=== PATIENT | female | born 1965 | race Caucasian/White ===

== ENCOUNTER 2017-01-29 02:16 | Emergency (ER) | payer SELFPAY ==
[~2017-01-29] VITALS: Ht 162.6 cm; Wt 62.9 kg
[2017-01-29 02:24] VITALS: BP 120/75; PULSE 80; RESP 14; TEMP 97.6; O2SAT 98
[2017-01-29] MEDS ORDERED: SUBO8MIS SL (02:32)
[2017-01-29] MEDS ORDERED: AMBI10TA PO (02:32)
[2017-01-29] MEDS ORDERED: PROZ20CA11 PO (02:32)
[2017-01-29] MEDS ORDERED: LORazepam 2 MG/ML VIAL IV PUSH ONE (02:45)
[2017-01-29] MEDS ORDERED: SODIUM CHLOR 0.9% 1000 ML INJ 1,000 ML IV ONE (02:45)
--- NOTE | 2017-01-29 02:45 | PD ---
HPI Chief Complaint: Dizziness Time Seen by Provider: 02:36 Travel History International Travel<30 days: No Contact w/Intl Traveler<30days: No Traveled to known affect area: No History of Present Illness HPI This is a 52-year-old female who presents to the emergency department with dizziness, lightheadedness and not feeling herself for the past several days. She's also been struggling with anxiety. She says that tonight she had an episode where she felt short of breath, felt like her heart was racing and she was sweating profusely. She felt very anxious and she told her bring her to the emergency department. Her symptoms were constant, lasting for about 15-20 minutes and currently has subsided. She takes Prozac for anxiety. She feels like her anxiety has gotten a lot worse over the past several weeks and she wasn't sure if it's because she is going through menopause. PFSH Past Medical History Narrative Medical Anxiety Fibroids status post partial hysterectomy Social History Alcohol Use: Yes (socially) Tobacco Use: No Substance Use: No Allergies-Medications (Allergen,Severity, Reaction): Coded Allergies: No Known Allergies (Unverified , 01/29/17) Reported Meds & Prescriptions Reported Meds & Active Scripts Active Reported Estroven Multi-Symptom Me (Black Cohosh-Soy Isoflavones-M) 1 Cap 1 Cap PO DAILY Suboxone Sublingual Film (Buprenorphine-Naloxone Sublingual Film) 8-2 Mg Film 1 Film SL DAILY Unique ID number required: Ambien (Zolpidem Tartrate) 10 Mg Tab 10 Mg PO HS PRN Prozac (Fluoxetine HCl) 20 Mg Cap 20 Mg PO DAILY Review of Systems Except as stated in HPI: all other systems reviewed are Neg Physical Exam Narrative GENERAL:Well appearing, no acute distress SKIN: Focused skin assessment warm and dry. HEAD: Atraumatic. Normocephalic. EYES: Pupils equal and round. No injection or drainage. ENT: Moist mucous membranes NECK: Trachea midline. CARDIOVASCULAR: Regular rate and rhythm. No murmur appreciated. RESPIRATORY: Clear to auscultation. Breath sounds equal bilaterally. GASTROINTESTINAL: Abdomen soft, non-tender, nondistended. MUSCULOSKELETAL: No obvious deformities. NEUROLOGICAL: Awake and alert. No obvious cranial nerve deficits. Moving all extremities. PSYCHIATRIC: Appropriate mood and affect; insight and judgment normal. Data Data Last Documented VS Vital Signs Date Time Temp Pulse Resp B/P Pulse Ox O2 Delivery O2 Flow Rate FiO2 01/29/17 02:24 97.6 80 14 120/75 98 Room Air Orders Complete Blood Count With Diff (01/29/17 02:42) Comprehensive Metabolic Panel (01/29/17 02:42) Thyroid Stimulating Hormone (01/29/17 02:42) Troponin I (01/29/17 02:42) Electrocardiogram (01/29/17 ) Urinalysis - C+S If Indicated (01/29/17 02:42) Lorazepam Inj (Ativan Inj) (01/29/17 02:45) Sodium Chlor 0.9% 1000 Ml Inj (Ns 1000 M (01/29/17 02:45) ^ Insert Iv (01/29/17 02:42) Urine Culture (01/29/17 02:52) Potassium Chloride Eff (K-Lyte Cl Eff) (01/29/17 03:45) Labs Laboratory Tests Test 01/29/17 01/29/17 02:52 03:00 Urine Color YELLOW Urine Turbidity CLOUDY Urine pH 5.5 Urine Specific [place] 1.015 Urine Protein NEG mg/dL Urine Glucose (UA) NEG mg/dL Urine Ketones NEG mg/dL Urine Occult Blood NEG Urine Nitrite NEG Urine Bilirubin NEG Urine Leukocyte Esterase MOD Urine RBC 0-3 /hpf Urine WBC 9-14 /hpf Urine Squamous Epithelial > 8 /hpf Cells Urine Amorphous Sediment MOD Urine Bacteria FEW /hpf Microscopic Urinalysis Comment CULTURE INDICATED White Blood Count 6.2 TH/MM3 Red Blood Count 4.17 MIL/MM3 Hemoglobin 12.3 GM/DL Hematocrit 36.7 % Mean Corpuscular Volume 88.1 FL Mean Corpuscular Hemoglobin 29.5 PG Mean Corpuscular Hemoglobin 33.5 % Concent Red Cell Distribution Width 12.9 % Platelet Count 323 TH/MM3 Mean Platelet Volume 6.4 FL Neutrophils (%) (Auto) 51.6 % Lymphocytes (%) (Auto) 34.5 % Monocytes (%) (Auto) 9.6 % Eosinophils (%) (Auto) 3.4 % Basophils (%) (Auto) 0.9 % Neutrophils # (Auto) 3.2 TH/MM3 Lymphocytes # (Auto) 2.1 TH/MM3 Monocytes # (Auto) 0.6 TH/MM3 Eosinophils # (Auto) 0.2 TH/MM3 Basophils # (Auto) 0.1 TH/MM3 CBC Comment DIFF FINAL Differential Comment Sodium Level 142 MEQ/L Potassium Level 3.0 MEQ/L Chloride Level 106 MEQ/L Carbon Dioxide Level 27.3 MEQ/L Anion Gap 9 MEQ/L Blood Urea Nitrogen 14 MG/DL Creatinine 1.30 MG/DL Estimat Glomerular Filtration 43 ML/MIN Rate Random Glucose 56 MG/DL Calcium Level 9.0 MG/DL Total Bilirubin 0.3 MG/DL Aspartate Amino Transf 14 U/L (AST/SGOT) Alanine Aminotransferase 17 U/L (ALT/SGPT) Alkaline Phosphatase 87 U/L Troponin I LESS THAN 0.02 NG/ML Total Protein 8.2 GM/DL Albumin 3.7 GM/DL Thyroid Stimulating Hormone 6.270 uIU/ML 3rd Gen [facility] Medical Decision Making Medical Screen Exam Complete: Yes Emergency Medical Condition: Yes Interpretation(s) Afebrile, no tachycardia No leukocytosis Mild renal insufficiency Potassium is 3 TSH is 6.2 Urinalysis is contaminated with squamous epithelial cells Differential Diagnosis Acute coronary syndrome, arrhythmia, hyperthyroidism, acute coronary syndrome, electrolyte abnormality, infection Narrative Course This is a 52-year-old female who presents to the emergency department with an episode of palpitations and anxiety. Labs are obtained and she is placed on a monitor. EKG was nonischemic and demonstrates no signs of arrhythmia. Patient is not anemic. She does have hypokalemia and some renal insufficiency. Her TSH is slightly elevated. Urinalysis is contaminated in the absence of leukocytosis or symptoms of dysuria, frequency or urgency I doubt she has a urinary tract infection. I did advise her to follow-up with the [facility] regarding her TSH level as I suspect her symptoms may be endocrine related. She was happy with this advice. She'll be discharged home. Diagnosis Primary Impression: Palpitations Patient Instructions: General Instructions Additional Instructions: If you develop severe chest pain, shortness of breath, sweating, lightheadedness , dizziness or difficulty breathing return to the emergency department immediately. Your thyroid level, TSH is abnormal. This should be followed by a primary care physician. Med/Other Pt SpecificInfo: No Change to Meds Disposition: 01 DISCHARGE HOME Condition: Stable Vianney Benavides MD Jan 29, 2017 02:45
[2017-01-29 03:14] LABS: BLOOD, URINE NEG (NEG); GLUCOSE,URINE NEG (NEG); KETONE, URINE NEG (NEG); NITRITE,URINE NEG (NEG); PH, URINE 5.5 (5.0-8.5)
[2017-01-29 03:15] LABS: AUTOMATED NEUTROPHIL # 3.2 TH/MM3 (1.8-7.7); BASOPHIL # 0.1 TH/MM3 (0-0.2); BASOPHIL % 0.9 % (0.0-2.0); EOSINOPHIL # 0.2 TH/MM3 (0-0.4); EOSINOPHIL % 3.4 % (0.0-4.0); HEMATOCRIT 36.7 % (35.0-46.0); HEMO FLAGS DIFF FINAL; LYMPH % 34.5 % (9.0-44.0); LYMPHOCYTE # 2.1 TH/MM3 (1.0-4.8); MEAN CELL VOLUME 88.1 FL (80.0-100.0); MEAN CORPUSCULAR HEMOGLOBIN 29.5 PG (27.0-34.0); MEAN CORPUSCULAR HGB CONC 33.5 % (32.0-36.0); MONO % 9.6 % (0.0-8.0); NEUT % 51.6 % (16.0-70.0); PLATELET COUNT 323 TH/MM3 (150-450); RED BLOOD COUNT 4.17 MIL/MM3 (4.00-5.30); RED CELL DISTRIBUTION WIDTH 12.9 % (11.6-17.2); WHITE BLOOD COUNT 6.2 TH/MM3 (4.0-11.0)
[2017-01-29 03:19] LABS: URINE COLOR YELLOW (YELLW/STRAW)
[2017-01-29 03:20] LABS: BACTERIA, URINE FEW /hpf; COMMENT (UR) CULTURE INDICATED; CULTURE IF INDICATED CULTURE INDICATED; RBC, URINE 0-3 /hpf (0-3); SQUAMOUS EPITHELIAL CELL URINE > 8 /hpf (0-5)
[2017-01-29 03:21] LABS: CHLORIDE 106 MEQ/L (98-107); SODIUM (NA) 142 MEQ/L (136-145)
[2017-01-29] MEDS ORDERED: BLAC1CAP2 PO (03:21)
[2017-01-29 03:25] LABS: ANION GAP 9 MEQ/L (5-15); BICARBONATE 27.3 MEQ/L (21.0-32.0)
[2017-01-29 03:26] LABS: BLOOD UREA NITROGEN 14 MG/DL (7-18)
[2017-01-29 03:28] LABS: ALT (GPT) 17 U/L (10-53)
[2017-01-29 03:29] LABS: AST (GOT) 14 U/L (15-37); GLOMERULAR FILTRATION RATE 43 ML/MIN (>89)
[2017-01-29 03:30] LABS: TOTAL BILIRUBIN ADULT 0.3 MG/DL (0.2-1.0)
[2017-01-29 03:31] LABS: ALKALINE PHOSPHATASE 87 U/L (45-117)
[2017-01-29] MEDS ORDERED: POTASSIUM CHLORIDE 25 MEQ EFFERVESCENT TAB PO ONE (03:45)
[2017-01-29 04:37] VITALS: BP 105/77; PULSE 73; RESP 16; O2SAT 100
--- NOTE | 2017-01-30 19:25 | EKG ---
Date Performed: 01/29/2017 Time Performed: 03:32:02 PTAGE: 52 years EKG: Sinus rhythm NORMAL ECG NO PREVIOUS TRACING DOCTOR: Poonam Cardona Interpretating Date/Time 01/30/2017 19:23:17
== END 2017-01-29 04:40 | disposition home or self-care (01) ==
LOC: PHED 02:16
DX: R00.2 Palpitations (principal); R79.89 Other specified abnormal findings of blood chemistry; E87.6 Hypokalemia; N28.9 Disorder of kidney and ureter, unspecified; F41.9 Anxiety disorder, unspecified; Z86.59 Personal history of other mental and behavioral disorders; Z87.42 Personal history of other diseases of the female genital tract
CPT/HCPCS: 80053; 81001; 84443; 84484; 85025; 87086; 93005; 96361; 96374; 99284; J2060; J7030

== ENCOUNTER 2017-02-19 09:49 | Emergency (ER) | payer SELFPAY ==
[~2017-02-19] VITALS: Ht 162.6 cm; Wt 64.5 kg
[~2017-02-19 09:49] MED LIST: AMBI10TA PO; BLAC1CAP2 PO; PROZ20CA11 PO; SUBO8MIS SL
[2017-02-19 09:55] VITALS: BP 157/80; PULSE 109; RESP 16; TEMP 98.5; O2SAT 100
[2017-02-19] MEDS ORDERED: AMPH1TAB29 PO (10:59)
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
== END 2017-02-19 11:33 | disposition home or self-care (01) ==
LOC: PHED 09:49
DX: R61 Generalized hyperhidrosis (principal); F41.9 Anxiety disorder, unspecified
CPT/HCPCS: 99283

== ENCOUNTER 2017-07-30 04:06 | Inpatient (IN) | payer SELFPAY ==
[~2017-07-30] VITALS: Ht 162.6 cm; Wt 75.1 kg
[2017-07-30] VITALS (9 sets, daily range): BP systolic 105–149; BP diastolic 59–75; PULSE 76–115; RESP 16–20; TEMP 97.8–99.2; O2SAT 94–99
[~2017-07-30 04:06] MED LIST changes: +AMPH1TAB29 PO
[2017-07-30] MEDS ORDERED: SODIUM CHLORIDE 0.9% FLUSH 10 ML FLUSH IVF PRN (04:45)
[2017-07-30] MEDS ORDERED: RESP: ALBUTEROL 2.5 MG/IPRATROPIUM 0.5 MG NEB (SCH) NEB ONE ×2 (04:45→07:00)
[2017-07-30] MEDS ORDERED: AZITHROMYCIN INJ 500 MG in SODIUM CHLOR 0.9% 250 ML INJ 250 ML IV ONE (04:45)
[2017-07-30] MEDS ORDERED: PIPERACIL-TAZO 4.5 GM PREMIX 100 ML IV ONE (04:45)
[2017-07-30 05:41] LABS: AUTOMATED NEUTROPHIL # 2.9 TH/MM3 (1.8-7.7); BASOPHIL % 0.3 % (0.0-2.0); EOSINOPHIL % 0.7 % (0.0-4.0); HEMATOCRIT 35.6 % (35.0-46.0); HEMOGLOBIN 12.1 GM/DL (11.6-15.3); MEAN CELL VOLUME 93.5 FL (80.0-100.0); MEAN CORPUSCULAR HEMOGLOBIN 31.9 PG (27.0-34.0); MEAN CORPUSCULAR HGB CONC 34.1 % (32.0-36.0); MEAN PLATELET VOLUME 7.6 FL (7.0-11.0); MONO % 14.1 % (0.0-8.0); MONOCYTE # 0.8 TH/MM3 (0-0.9); NEUT % 49.9 % (16.0-70.0); PLATELET COUNT 171 TH/MM3 (150-450); RED BLOOD COUNT 3.81 MIL/MM3 (4.00-5.30); RED CELL DISTRIBUTION WIDTH 12.8 % (11.6-17.2); WHITE BLOOD COUNT 5.8 TH/MM3 (4.0-11.0)
--- NOTE | 2017-07-30 05:48 | RADRPT ---
EXAM DATE/TIME: 07/30/2017 04:55 [facility] COMPARISON: No previous studies available for comparison. INDICATIONS : Shortness of breath MEDICAL HISTORY : SURGICAL HISTORY : Hysterectomy. ENCOUNTER: Initial ACUITY: 1 day PAIN SCORE: 8/10 LOCATION: Bilateral chest FINDINGS: A single view of the chest demonstrates a focal mild infiltrate in the left lower lung. Otherwise, th e rest of the lungs are grossly clear.. The cardiomediastinal contours are unremarkable. Osseous st ructures are intact. CONCLUSION: Mild left lower lung infiltrate. Elver Maldonado MD on July 30, 2017 at 5:45 Board Certified Radiologist. This report was verified electronically.
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
[2017-07-30] MEDS ORDERED: KETOROLAC TROMETHAMINE 30 MG/ML (IVP) VIAL IV PUSH ONE ×2 (06:00→21:00)
[2017-07-30 06:04] LABS: ALBUMIN 3.4 GM/DL (3.4-5.0); AST (GOT) 28 U/L (15-37); BICARBONATE 24.7 MEQ/L (21.0-32.0); BLOOD UREA NITROGEN 9 MG/DL (7-18); CALCIUM 8.6 MG/DL (8.5-10.1); CHLORIDE 101 MEQ/L (98-107); CREATININE 1.07 MG/DL (0.50-1.00); GLOMERULAR FILTRATION RATE 54 ML/MIN (>89); GLUCOSE,RANDOM 112 MG/DL (74-106); SODIUM (NA) 136 MEQ/L (136-145)
[2017-07-30 06:05] LABS: ALT (GPT) 24 U/L (10-53)
[2017-07-30 06:08] LABS: ALKALINE PHOSPHATASE 68 U/L (45-117); TOTAL BILIRUBIN ADULT 0.3 MG/DL (0.2-1.0); TOTAL PROTEIN 7.6 GM/DL (6.4-8.2)
[2017-07-30] MEDS ORDERED: SENNOSIDES 8.6 MG TAB PO PRN (06:45)
[2017-07-30] MEDS ORDERED: SODIUM CHLOR 0.9% 1000 ML INJ 1,000 ML IV ONE (06:45)
[2017-07-30] MEDS ORDERED: ONDANSETRON HCL 4 MG/2 ML VIAL IVP PRN (06:45)
[2017-07-30] MEDS ORDERED: Vancomycin Consult Pharmacy 1 EA OTHER SCH (06:45)
[2017-07-30] MEDS ORDERED: BISACODYL 10 MG SUPP RECTAL PRN (06:45)
[2017-07-30] MEDS ORDERED: LACTULOSE SYRUP 20 GM/30 ML CUP PO PRN (06:45)
[2017-07-30] MEDS ORDERED: ACETAMINOPHEN/HYDROcodone 325 MG/5 MG TAB PO PRN (06:45)
[2017-07-30] MEDS ORDERED: SODIUM CHLORIDE 0.9% FLUSH 10 ML FLUSH IV FLUSH PRN (06:45)
[2017-07-30] MEDS ORDERED: MAGNESIUM HYDROXIDE SUSP 30 ML CUP PO PRN (06:45)
[2017-07-30] MEDS ORDERED: ACETAMINOPHEN 325 MG TAB PO PRN (06:45)
[2017-07-30] MEDS ORDERED: RESP: ALBUTEROL 2.5 MG/IPRATROPIUM 0.5 MG NEB (PRN) NEB (06:45)
[2017-07-30] MEDS ORDERED: VANCOMYCIN 1,000 MG/NS 250 ML IV ONE ×2 (08:00)
[2017-07-30] MEDS: CEFEPIME INJ 1,000 MG in SODIUM CHLORIDE 0.9% INJ 100 ML IV SCH ×2 (08:02→20:19)
[2017-07-30] MEDS: SODIUM CHLOR 0.9% 1000 ML INJ 1,000 ML IV SCH ×2 (08:57→17:13)
[2017-07-30] MEDS: VANCOMYCIN INJ 1,250 MG in SODIUM CHLOR 0.9% 250 ML INJ 250 ML IV SCH ×2 (08:58→20:18)
[2017-07-30] MEDS: DOCUSATE SODIUM 50 MG/SENNA 8.6 MG TAB PO SCH ×2 (08:58→20:19)
[2017-07-30] MEDS: SODIUM CHLORIDE 0.9% FLUSH 10 ML FLUSH IV FLUSH SCH ×2 (08:58→20:18)
--- NOTE | 2017-07-30 09:08 | HHI.HP ---
[facility] Service [place] [facility] Primary Care Physician No Primary Care Physician Admission Diagnosis pneumonia Diagnoses: Travel History International Travel<30 Days: No Contact w/Intl Traveler <30 Da: No Traveled to Known Affected Are: No History of Present Illness 52-year-old female with a past medical history significant for chronic back pain for which she takes methadone presents to the emergency department with a four-day history of headache, sore throat, fever and cough productive of yellow sputum. The patient has associated shortness of breath and nausea/vomiting. Denies chest pain. Vital signs on arrival, temperature 99.2, pulse 1:15, respiratory rate 18, BP 149/75, pulse ox 94% on room air. Chest x-ray significant for mid left lower lung infiltrate. Patient has no prior history of blood clots and no lower extremity swelling. Review of Systems Positive fever/chills Denies blurry vision, otorrhea, rhinorrhea Positive sore throat and productive cough No chest pain, palpitations, positive shortness of breath No abdominal pain Denies constipation/diarrhea. Positive nausea/vomiting Denies muscle pain/weakness No rashes Past Family Social History Past Medical History Chronic back pain for which she takes 90 mg of methadone every other day Past Surgical History Partial hysterectomy Reported Medications Methadone 90 mg every other day Allergies: Coded Allergies: No Known Allergies (Unverified Allergy, Unknown, 07/30/17) Family History Mother with diabetes mellitus Social History Denies alcohol, tobacco and illicit drugs. Physical Exam Vital Signs Vital Signs Date Time Temp Pulse Resp B/P (MAP) Pulse Ox O2 Delivery O2 Flow Rate FiO2 07/30/17 08:30 101 113/63 (80) 95 07/30/17 07:46 95 21 07/30/17 07:03 97 20 113/63 (80) 95 Nasal Cannula 2.00 07/30/17 04:54 99 Nasal Cannula 2.00 07/30/17 04:13 94 Room Air 07/30/17 04:10 99.2 115 18 149/75 (99) 94 Physical Exam GENERAL: female lying in bed SKIN: No rashes, ecchymoses or lesions. Cool and dry. HEAD: Atraumatic. Normocephalic. No temporal or scalp tenderness. EYES: Pupils equal round and reactive. Extraocular motions intact. No scleral icterus. No injection or drainage. ENT: Nose without bleeding, purulent drainage or septal hematoma. Throat without erythema, tonsillar hypertrophy or exudate. Uvula midline. Airway patent. NECK: Trachea midline. No JVD or lymphadenopathy. Supple, nontender, no meningeal signs. CARDIOVASCULAR: Regular rate and rhythm without murmurs, gallops, or rubs. RESPIRATORY: Bilateral wheezes and rhonchi. GASTROINTESTINAL: Abdomen soft, non-tender, nondistended. No hepato-splenomegaly , or palpable masses. No guarding. MUSCULOSKELETAL: Extremities without clubbing, cyanosis, or edema. No joint tenderness, effusion, or edema noted. No calf tenderness. NEUROLOGICAL: Awake and alert. Cranial nerves II through XII intact. Motor and sensory grossly within normal limits. Normal speech. Laboratory Laboratory Tests Test 07/30/17 05:10 07/30/17 05:25 07/30/17 06:40 White Blood Count 5.8 Red Blood Count 3.81 Hemoglobin 12.1 Hematocrit 35.6 Mean Corpuscular Volume 93.5 Mean Corpuscular Hemoglobin 31.9 Mean Corpuscular Hemoglobin Concent 34.1 Red Cell Distribution Width 12.8 Platelet Count 171 Mean Platelet Volume 7.6 Neutrophils (%) (Auto) 49.9 Lymphocytes (%) (Auto) 35.0 Monocytes (%) (Auto) 14.1 Eosinophils (%) (Auto) 0.7 Basophils (%) (Auto) 0.3 Neutrophils # (Auto) 2.9 Lymphocytes # (Auto) 2.0 Monocytes # (Auto) 0.8 Eosinophils # (Auto) 0.0 Basophils # (Auto) 0.0 CBC Comment DIFF FINAL Differential Comment Blood Urea Nitrogen 9 Creatinine 1.07 Random Glucose 112 Total Protein 7.6 Albumin 3.4 Calcium Level 8.6 Alkaline Phosphatase 68 Aspartate Amino Transf (AST/SGOT) 28 Alanine Aminotransferase (ALT/SGPT) 24 Total Bilirubin 0.3 Sodium Level 136 Potassium Level 3.3 Chloride Level 101 Carbon Dioxide Level 24.7 Anion Gap 10 Estimat Glomerular Filtration Rate 54 B-Type Natriuretic Peptide 18 Lactic Acid Level 1.4 Troponin I LESS THAN 0.02 Date/Time Source Procedure Growth Status 07/30/17 05:00 Blood Peripheral Aerobic Blood Culture Pending Received 07/30/17 05:00 Blood Peripheral Anaerobic Blood Culture Pending Received 07/30/17 05:46 Sputum Expectorated Sputum Gram Stain Pending Received 07/30/17 05:46 Sputum Expectorated Sputum Sputum Culture Pending Received Result Diagram: 07/30/17 0510 07/30/17 0510 Caprini VTE Risk Assessment Caprini VTE Risk Assessment: No/Low Risk (score <= 1) Caprini Risk Assessment Model Point Value = 1 Point Value = 2 Point Value = 3 Point Value = 5 Age 41-60 Minor surgery BMI > 25 kg/m2 Swollen legs Varicose veins or History of unexplained or recurrent spontaneous Oral contraceptives or hormone replacement Sepsis (< 1 month) Serious lung disease, including pneumonia (< 1 month) Abnormal pulmonary function Acute myocardial infarction Congestive heart failure (< 1 month) History of inflammatory bowel disease Medical patient at bed rest Age 61-74 Arthroscopic surgery Major open surgery (> 45 min) Laparoscopic surgery (> 45 min) Malignancy Confined to bed (> 72 hours) Immobilizing plaster cast Central venous access Age >= 75 History of VTE Family history of VTE Factor V Leiden Prothrombin [id number] Lupus anticoagulant Anticardiolipin antibodies Elevated serum homocysteine Heparin-induced thrombocytopenia Other congenital or acquired thrombophilia Stroke (< 1 month) Elective arthroplasty Hip, pelvis, or leg fracture Acute spinal cord injury (< 1 month) Prophylaxis Regimen Total Risk Factor Score Risk Level Prophylaxis Regimen 0-1 Low Early ambulation 2 Moderate Order ONE of the following: *Sequential Compression Device (SCD) *Heparin 5000 units SQ BID 3-4 Higher Order ONE of the following medications: *Heparin 5000 units SQ TID *Enoxaparin/Lovenox 40 mg SQ daily (WT < 150 kg, CrCl > 30 mL/min) *Enoxaparin/Lovenox 30 mg SQ daily (WT < 150 kg, CrCl > 10-29 mL/min) *Enoxaparin/Lovenox 30 mg SQ BID (WT < 150 kg, CrCl > 30 mL/min) AND/OR *Sequential Compression Device (SCD) 5 or more Highest Order ONE of the following medications: *Heparin 5000 units SQ TID (Preferred with Epidurals) *Enoxaparin/Lovenox 40 mg SQ daily (WT < 150 kg, CrCl > 30 mL/min) *Enoxaparin/Lovenox 30 mg SQ daily (WT < 150 kg, CrCl > 10-29 mL/min) *Enoxaparin/Lovenox 30 mg SQ BID (WT < 150 kg, CrCl > 30 mL/min) AND *Sequential Compression Device (SCD) Assessment and Plan Assessment and Plan Assessment/plan: 1. Pneumonia Chest x-ray significant for left lower lung infiltrate, images reviewed by me No leukocytosis, lactic acid 1.4 Negative for flu Blood cultures, sputum culture pending Cefepime and vancomycin pending culture results DuoNebs Supplemental oxygen as needed Monitor for signs of sepsis and respiratory distress Anticipate antibiotic de-escalation with clinical improvement and the return of cultures 2. Chronic back pain on methadone Call methadone clinic to confirm dosing Restart home methadone once confirmed FEN Regular diet NS at 100 cc/hr Electrolytes: Status post by mouth supplementation of potassium, monitor BMP SCDs Physician Certification 2 Midnight Certification Type: Admission for Inpatient Services Order for Inpatient Services The services are ordered in accordance with Medicare regulations or non- Medicare payer requirements, as applicable. In the case of services not specified as inpatient-only, they are appropriately provided as inpatient services in accordance with the 2-midnight benchmark. Estimated LOS (days): 2 2 days is the estimated time the patient will need to remain in the hospital, assuming treatment plan goals are met and no additional complications. Post-Hospital Plan: Not yet determined Andie Mustafa MD Jul 30, 2017 09:08
[2017-07-30] MEDS ORDERED: POTASSIUM CHLORIDE 20 MEQ CONTROLLED RELEASE TAB PO ONE (09:15)
[2017-07-30] MEDS ORDERED: METH10CO3 PO (09:31)
[2017-07-30 10:13] LABS: AMORPHOUS SEDIMENT, URINE FEW; BACTERIA, URINE RARE /hpf; BILIRUBIN, URINE NEG (NEG); BLOOD, URINE NEG (NEG); GLUCOSE,URINE TRACE mg/dL (NEG); KETONE, URINE NEG (NEG); NITRITE,URINE NEG (NEG); SQUAMOUS EPITHELIAL CELL URINE 15 /hpf (0-5); TRANSITIONAL EPI CELLS, URINE <1 /hpf; URINE COLOR LIGHT-YELLOW (YELLW/STRAW); URINE LEUKOCYTE ESTERASE NEG (NEG)
[2017-07-30] MEDS: METHADONE HCL 10 MG TAB PO SCH (11:48)
[2017-07-30] MEDS: ACETAMINOPHEN/HYDROcodone 325 MG/10 MG TAB PO PRN ×2 (17:20→23:05)
[2017-07-30] MEDS ORDERED: ACETAMIN 325 MG/BUTALBITAL 50 MG/CAFFEINE 40 MG TAB PO ONE (21:00)
[2017-07-31] VITALS (9 sets, daily range): BP systolic 96–135; BP diastolic 60–82; PULSE 59–86; RESP 12–20; TEMP 97.8–98.2; O2SAT 94–98
[2017-07-31] MEDS: SODIUM CHLOR 0.9% 1000 ML INJ 1,000 ML IV SCH ×3 (03:00→23:30)
[2017-07-31 07:41] LABS: AUTOMATED NEUTROPHIL # 4.4 TH/MM3 (1.8-7.7); BASOPHIL % 0.2 % (0.0-2.0); EOSINOPHIL % 0.2 % (0.0-4.0); HEMATOCRIT 29.8 % (35.0-46.0); HEMOGLOBIN 10.2 GM/DL (11.6-15.3); LYMPH % 18.5 % (9.0-44.0); LYMPHOCYTE # 1.1 TH/MM3 (1.0-4.8); MEAN CELL VOLUME 93.5 FL (80.0-100.0); MEAN CORPUSCULAR HEMOGLOBIN 32.1 PG (27.0-34.0); MEAN CORPUSCULAR HGB CONC 34.3 % (32.0-36.0); MEAN PLATELET VOLUME 7.5 FL (7.0-11.0); MONO % 9.8 % (0.0-8.0); MONOCYTE # 0.6 TH/MM3 (0-0.9); NEUT % 71.3 % (16.0-70.0); PLATELET COUNT 167 TH/MM3 (150-450); RED BLOOD COUNT 3.18 MIL/MM3 (4.00-5.30); RED CELL DISTRIBUTION WIDTH 12.9 % (11.6-17.2); WHITE BLOOD COUNT 6.2 TH/MM3 (4.0-11.0)
[2017-07-31 07:43] LABS: ALBUMIN 2.6 GM/DL (3.4-5.0); ALKALINE PHOSPHATASE 48 U/L (45-117); ALT (GPT) 19 U/L (10-53); AST (GOT) 17 U/L (15-37); BICARBONATE 24.3 MEQ/L (21.0-32.0); BLOOD UREA NITROGEN 13 MG/DL (7-18); CALCIUM 8.2 MG/DL (8.5-10.1); CHLORIDE 112 MEQ/L (98-107); CREATININE 0.85 MG/DL (0.50-1.00); GLOMERULAR FILTRATION RATE 71 ML/MIN (>89); GLUCOSE,RANDOM 85 MG/DL (74-106); SODIUM (NA) 142 MEQ/L (136-145); TOTAL BILIRUBIN ADULT 0.2 MG/DL (0.2-1.0); TOTAL PROTEIN 6.3 GM/DL (6.4-8.2)
--- NOTE | 2017-07-31 08:04 | EKG ---
Date Performed: 07/30/2017 Time Performed: 04:15:34 PTAGE: 52 years EKG: SINUS TACHYCARDIA NONSPECIFIC T-WAVE ABNORMALITY, new since prior tracing ABNORMAL RHYTHM E CG PREVIOUS TRACING : 01/29/2017 03.32 DOCTOR: oJsue Sharif Interpretating Date/Time 07/31/2017 08:03:26
--- NOTE | 2017-07-31 08:05 | EKG ---
Date Performed: 07/30/2017 Time Performed: 06:41:32 PTAGE: 52 years EKG: Sinus rhythm POSSIBLE LEFT ATRIAL ENLARGEMENT Nonspecific ST-T abnormalities Since previous tracing, no significa nt change noted BORDERLINE ECG PREVIOUS TRACING : 07/30/2017 04.15 DOCTOR: Josue Sharif Interpretating Date/Time 07/31/2017 08:04:08
[2017-07-31] MEDS: SODIUM CHLORIDE 0.9% FLUSH 10 ML FLUSH IV FLUSH SCH ×2 (09:00→20:58)
[2017-07-31] MEDS ORDERED: METHADONE PO SCH (09:00)
[2017-07-31] MEDS ORDERED: INFLUENZA VIRUS VACCINE (QUADRIVALENT) 0.5 ML SYR IM ONE (10:00)
[2017-07-31] MEDS ORDERED: PNEUMOCOCCAL POLYVALENT INJ 25 MCG/0.5 ML SYR IM ONE (10:00)
[2017-07-31] MEDS: METHADONE HCL 10 MG TAB PO SCH (10:04)
[2017-07-31] MEDS: DOCUSATE SODIUM 50 MG/SENNA 8.6 MG TAB PO SCH ×2 (10:04→20:58)
[2017-07-31] MEDS: VANCOMYCIN INJ 1,250 MG in SODIUM CHLOR 0.9% 250 ML INJ 250 ML IV SCH ×2 (10:13→20:57)
--- NOTE | 2017-07-31 14:09 | HHI.PR ---
Subjective Remarks This is a pleasant 52 y/o Female with chronic low back pain, takes Methadone who presents to Emergency room with headache, sore throat, fever and cough productive of yellow sputum. The patient has associated shortness of breath and nausea/vomiting. Denies chest pain. has left lower lobe infiltrate to continue antibiotics, bronchodilator, Mucolytic and incentive spirometry. improving condition clinically. Objective Vital Signs Date Time Temp Pulse Resp B/P (MAP) Pulse Ox O2 Delivery O2 Flow Rate FiO2 07/31/17 12:45 97.8 80 14 104/73 (83) 95 07/31/17 10:01 97.8 86 12 124/82 (96) 96 07/31/17 06:53 16 07/31/17 04:02 65 07/31/17 00:11 59 07/31/17 00:06 16 07/30/17 23:04 16 07/30/17 23:04 16 07/30/17 20:00 97.8 78 16 105/71 (82) 96 07/30/17 20:00 76 07/30/17 15:00 98.7 84 122/72 (89) 07/30/17 15:00 84 I/O 07/30/17 07/30/17 07/30/17 07/31/17 07/31/17 07/31/17 07:00 15:00 23:00 07:00 15:00 23:00 Intake Total 350 ml 1440 ml 1340 ml 480 ml 480 ml Balance 350 ml 1440 ml 1340 ml 480 ml 480 ml Intake Oral 440 ml 440 ml 480 ml 480 ml IV Total 350 ml 1000 ml 900 ml # Voids 1 1 1 Result Diagram: 07/31/17 0615 07/31/17 0615 Imaging Last Impressions Chest X-Ray 07/30/17 0442 Signed Impressions: Service Date/Time: Sunday, July 30, 2017 04:55 - CONCLUSION: Mild left lower lung infiltrate. Elver Maldonado MD Procedures None Other Results Laboratory Tests Test 07/30/17 05:10 07/30/17 05:25 07/30/17 06:40 07/30/17 09:10 B-Type Natriuretic Peptide 18 PG/ML Lactic Acid Level 1.4 mmol/L Troponin I LESS THAN 0.02 NG/ML Urine Color LIGHT-YELLOW Urine Turbidity HAZY Urine pH 5.0 Urine Specific [place] 1.006 Urine Protein NEG mg/dL Urine Glucose (UA) TRACE mg/dL Urine Ketones NEG mg/dL Urine Occult Blood NEG Urine Nitrite NEG Urine Bilirubin NEG Urine Urobilinogen LESS THAN 2.0 MG/DL Urine Leukocyte Esterase NEG Urine RBC 1 /hpf Urine WBC 3 /hpf Urine Squamous Epithelial Cells 15 /hpf Urine Transitional Epithelial Cells <1 /hpf Urine Amorphous Sediment FEW Urine Bacteria RARE /hpf Microscopic Urinalysis Comment CULT NOT INDICATED Test 07/31/17 06:15 White Blood Count 6.2 TH/MM3 Red Blood Count 3.18 MIL/MM3 Hemoglobin 10.2 GM/DL Hematocrit 29.8 % Mean Corpuscular Volume 93.5 FL Mean Corpuscular Hemoglobin 32.1 PG Mean Corpuscular Hemoglobin Concent 34.3 % Red Cell Distribution Width 12.9 % Platelet Count 167 TH/MM3 Mean Platelet Volume 7.5 FL Neutrophils (%) (Auto) 71.3 % Lymphocytes (%) (Auto) 18.5 % Monocytes (%) (Auto) 9.8 % Eosinophils (%) (Auto) 0.2 % Basophils (%) (Auto) 0.2 % Neutrophils # (Auto) 4.4 TH/MM3 Lymphocytes # (Auto) 1.1 TH/MM3 Monocytes # (Auto) 0.6 TH/MM3 Eosinophils # (Auto) 0.0 TH/MM3 Basophils # (Auto) 0.0 TH/MM3 CBC Comment DIFF FINAL Differential Comment Blood Urea Nitrogen 13 MG/DL Creatinine 0.85 MG/DL Random Glucose 85 MG/DL Total Protein 6.3 GM/DL Albumin 2.6 GM/DL Calcium Level 8.2 MG/DL Alkaline Phosphatase 48 U/L Aspartate Amino Transf (AST/SGOT) 17 U/L Alanine Aminotransferase (ALT/SGPT) 19 U/L Total Bilirubin 0.2 MG/DL Sodium Level 142 MEQ/L Potassium Level 3.9 MEQ/L Chloride Level 112 MEQ/L Carbon Dioxide Level 24.3 MEQ/L Anion Gap 6 MEQ/L Estimat Glomerular Filtration Rate 71 ML/MIN Objective Remarks GENERAL: no acute distress. SKIN: No rashes, ecchymoses or lesions. Cool and dry. HEAD: Atraumatic. Normocephalic. No temporal or scalp tenderness. EYES: Pupils equal round and reactive. Extraocular motions intact. No scleral icterus. No injection or drainage. ENT: Nose without bleeding, purulent drainage or septal hematoma. Throat without erythema, tonsillar hypertrophy or exudate. Uvula midline. Airway patent. NECK: Trachea midline. No JVD or lymphadenopathy. Supple, nontender, no meningeal signs. CARDIOVASCULAR: Regular rate and rhythm without murmurs, gallops, or rubs. RESPIRATORY: has Crackles on left lung base. GASTROINTESTINAL: Abdomen soft, non-tender, nondistended. No hepato-splenomegaly , or palpable masses. No guarding. MUSCULOSKELETAL: Extremities without clubbing, cyanosis, or edema. No joint tenderness, effusion, or edema noted. No calf tenderness. NEUROLOGICAL: Awake and alert. Cranial nerves II through XII intact. Motor and sensory grossly within normal limits. Normal speech. Medications and IVs Current Medications Medications (Trade) Dose Ordered Sig/Noemí Route Start Time Stop Time Status Last Admin Pharmacy Profile Note 0 ml @ 0 mls/hr UNSCH OTHER 07/30/17 06:45 Cefepime HCl 1000 mg/Sodium Chloride 100 ml @ 200 mls/hr Q12H IV 07/30/17 07:00 07/30/17 20:19 (Duoneb Neb) 1 ampule Q4HR NEB PRN NEB 07/30/17 06:45 07/31/17 09:51 Sodium Chloride 1,000 ml @ 100 mls/hr Q10H IV 07/30/17 07:00 07/31/17 12:35 (NS Flush) 2 ml UNSCH PRN IV FLUSH 07/30/17 06:45 (NS Flush) 2 ml BID IV FLUSH 07/30/17 09:00 07/30/17 08:58 (Zofran Inj) 4 mg Q6H PRN IVP 07/30/17 06:45 (Tylenol) 650 mg Q6H PRN PO 07/30/17 06:45 ([place] 5-325 Mg) 1 tab Q4H PRN PO 07/30/17 06:45 07/31/17 05:03 ([place] 10-325 Mg) 1 tab Q4H PRN PO 07/30/17 06:45 07/30/17 23:05 (Ronit-Colace) 1 tab BID PO 07/30/17 09:00 07/31/17 10:04 (Milk Of Magnesia Liq) 30 ml Q12H PRN PO 07/30/17 06:45 (Senokot) 17.2 mg Q12H PRN PO 07/30/17 06:45 (Dulcolax Supp) 10 mg DAILY PRN RECTAL 07/30/17 06:45 (Lactulose Liq) 30 ml DAILY PRN PO 07/30/17 06:45 Vancomycin HCl 1250 mg/Sodium Chloride 262.5 ml @ 250 mls/hr Q12H IV 07/30/17 09:00 07/31/17 10:13 Miscellaneous Information SPECIFIC LAB TO BE GUSTAVO... ONCE ONCE .XX 07/31/17 20:45 07/31/17 20:46 (Dolophine) 90 mg DAILY PO 07/30/17 12:00 07/31/17 10:04 A/P Assessment and Plan 1. Pneumonia, Chest x-ray significant for left lower lung infiltrate, Blood cultures, sputum culture pending, continue Cefepime and Vancomycin, Bronchodilator, Mucolytic and incentive spirometry, 2. Chronic back pain on methadone re started methadone from home dose. DVT prophylaxis with SCDs. Discharge Planning Expected by tomorrow. Camilo Garvin MD Jul 31, 2017 14:09
[2017-07-31] MEDS: RESP: ALBUTEROL 2.5 MG/IPRATROPIUM 0.5 MG NEB (SCH) NEB ×2 (15:56→19:34)
[2017-07-31] MEDS: CEFEPIME INJ 1,000 MG in SODIUM CHLORIDE 0.9% INJ 100 ML IV SCH (18:25)
[2017-07-31] MEDS: ACETAMINOPHEN/HYDROcodone 325 MG/10 MG TAB PO PRN ×2 (18:34→22:48)
[2017-07-31] MEDS ORDERED: PHARMACY ORDERED LAB ONE (20:45)
[2017-07-31] MEDS: guaiFENesin E.R. 600 MG TAB PO SCH (20:58)
[2017-08-01] VITALS: PULSE 68
[2017-08-01] MEDS: RESP: ALBUTEROL 2.5 MG/IPRATROPIUM 0.5 MG NEB (SCH) NEB ×5 (00:10→16:00)
[2017-08-01 04:00] VITALS: BP 140/83; PULSE 67; PULSE 68; RESP 18; TEMP 98.1; O2SAT 95
[2017-08-01] MEDS: CEFEPIME INJ 1,000 MG in SODIUM CHLORIDE 0.9% INJ 100 ML IV SCH (05:24)
[2017-08-01] MEDS: ACETAMINOPHEN/HYDROcodone 325 MG/10 MG TAB PO PRN ×2 (05:25→17:32)
[2017-08-01] MEDS: SODIUM CHLORIDE 0.9% FLUSH 10 ML FLUSH IV FLUSH SCH (07:46)
[2017-08-01 08:08] VITALS: BP 118/73; PULSE 71; RESP 18; TEMP 97.9; O2SAT 95
[2017-08-01] MEDS ORDERED: VANCOMYCIN 1,000 MG/NS 250 ML IV SCH ×2 (09:00)
[2017-08-01] MEDS: DOCUSATE SODIUM 50 MG/SENNA 8.6 MG TAB PO SCH (09:06)
[2017-08-01] MEDS: METHADONE HCL 10 MG TAB PO SCH (09:06)
[2017-08-01] MEDS: guaiFENesin E.R. 600 MG TAB PO SCH (09:06)
[2017-08-01] MEDS: SODIUM CHLOR 0.9% 1000 ML INJ 1,000 ML IV SCH (09:07)
--- NOTE | 2017-08-01 09:18 | RADRPT ---
EXAM DATE/TIME: 08/01/2017 08:40 [facility] COMPARISON: CHEST SINGLE AP, July 30, 2017, 4:55. INDICATIONS : Pneumonia. Patient complains of tightness in her chest. MEDICAL HISTORY : None. SURGICAL HISTORY : Hysterectomy. ENCOUNTER: Initial ACUITY: 3 days PAIN SCORE: 0/10 LOCATION: Bilateral chest FINDINGS: There is persistent evidence of left nasal retrocardiac bronchovascular markings. CONCLUSION: Stable chest. Suspect minimal or early infiltrate left lower lobe retrocardiac region as described Luke Alejandra MD on August 01, 2017 at 9:14 Board Certified Radiologist. This report was verified electronically.
[2017-08-01 12:08] VITALS: BP 101/67; PULSE 65; RESP 18; TEMP 98.2; O2SAT 95
[2017-08-01 16:08] VITALS: BP 125/82; PULSE 62; RESP 18; TEMP 98.4; O2SAT 94
[2017-08-01] MEDS ORDERED: PRED20 PO (16:46)
[2017-08-01] MEDS ORDERED: guaiFENesin ER PO (16:46)
[2017-08-01] MEDS ORDERED: DOXY100C PO (16:46)
--- NOTE | 2017-08-01 16:47 | HHI.DCPOC ---
Discharge Care Plan Diagnosis: (1) Reactive airway disease (2) Pneumonia Goals to Promote Your Health * To prevent worsening of your condition and complications * To maintain your health at the optimal level Directions to Meet Your Goals Take your medications as prescribed Follow your dietary instruction Follow activity as directed Keep your appointments as scheduled Take your immunizations and boosters as scheduled If your symptoms worsen call your PCP, if no PCP go to Urgent Care Center or Emergency Room Smoking is Dangerous to Your Health. Avoid second hand smoke Call the 24-hour hour crisis hotline for domestic abuse at Reji Boyd MD Aug 01, 2017 16:47
--- NOTE | 2017-08-01 16:53 | HHI.DS ---
Discharge Summary Admission Date Jul 30, 2017 at 06:48 Discharge Date: Aug 01, 2017 Admitting Diagnosis pneumonia (1) Pneumonia ICD Code: J18.9 - Pneumonia, unspecified organism Diagnosis: Principal Status: Acute (2) Reactive airway disease ICD Code: J45.909 - Unspecified asthma, uncomplicated Diagnosis: Principal Status: Acute (3) Chronic pain ICD Code: G89.29 - Other chronic pain Diagnosis: Principal Status: Chronic Procedures none Brief History - From Admission 52-year-old female with a past medical history significant for chronic back pain for which she takes methadone presents to the emergency department with a four-day history of headache, sore throat, fever and cough productive of yellow sputum. The patient has associated shortness of breath and nausea/vomiting. Denies chest pain. Vital signs on arrival, temperature 99.2, pulse 1:15, respiratory rate 18, BP 149/75, pulse ox 94% on room air. Chest x-ray significant for mid left lower lung infiltrate. Patient has no prior history of blood clots and no lower extremity swelling. CBC/BMP: 07/31/17 0615 07/31/17 0615 Significant Findings Laboratory Tests Test 07/30/17 05:10 07/30/17 05:25 07/30/17 06:40 07/30/17 09:10 Red Blood Count 3.81 MIL/MM3 (4.00-5.30) Monocytes (%) (Auto) 14.1 % (0.0-8.0) Creatinine 1.07 MG/DL (0.50-1.00) Random Glucose 112 MG/DL (74-106) Potassium Level 3.3 MEQ/L (3.5-5.1) Estimat Glomerular Filtration Rate 54 ML/MIN (>89) Troponin I LESS THAN 0.02 NG/ML Urine Turbidity HAZY (CLEAR) Urine Bacteria RARE /hpf (NONE) Test 07/31/17 05:50 07/31/17 06:15 Vancomycin Level Trough 19.9 MCG/ML (5.0-10.0) Red Blood Count 3.18 MIL/MM3 (4.00-5.30) Hemoglobin 10.2 GM/DL (11.6-15.3) Hematocrit 29.8 % (35.0-46.0) Neutrophils (%) (Auto) 71.3 % (16.0-70.0) Monocytes (%) (Auto) 9.8 % (0.0-8.0) Total Protein 6.3 GM/DL (6.4-8.2) Albumin 2.6 GM/DL (3.4-5.0) Calcium Level 8.2 MG/DL (8.5-10.1) Chloride Level 112 MEQ/L (98-107) Estimat Glomerular Filtration Rate 71 ML/MIN (>89) Imaging Last Impressions Chest X-Ray 08/01/17 0700 Signed Impressions: Service Date/Time: Tuesday, August 01, 2017 08:40 - CONCLUSION: Stable chest. Suspect minimal or early infiltrate left lower lobe retrocardiac region as described Luke Alejandra MD Pt update on day of discharge Patient denies cp/sob/ (+) coughing, afebrile. Wants to go home. Hospital Course The patient was admitted to the medical floor, placed supplemental oxygen to keep oxygen saturations more than 92%, IV broad-spectrum antibiotics with IV cefepime and IV vancomycin. Flu was ordered and negative. Patient also place on DuoNeb's. Patient had blood cultures negative 2 days, negative flu a and B antigen, sputum culture grew heavy growth of normal respiratory joaquina. The patient has history of chronic back pain and was resumed on her home methadone dose. Patient also had rhonchi and wheezing on bilateral lung rangel. Likely secondary to hyperreactive airway disease, on prednisone 40 mg by mouth 5 days. Pt Condition on Discharge: Stable Discharge Disposition: Discharge Home Discharge Time: <= 30 minutes Discharge Instructions DIET: Follow Instructions for: As Tolerated, No Restrictions Activities you can perform: Regular-No Restrictions Follow up Referrals: PCP Follow-up - 2 Weeks New Medications: Doxycycline Hyclate (Doxycycline Hyclate) 100 Mg Cap 100 MG PO BID for Infection, #20 CAP 0 Refills Prednisone (Prednisone) 20 Mg Tab 40 MG PO DAILY for Inflammation, #10 TAB 0 Refills Take 40 mg (2 tablets) daily for 5 days [guaiFENesin ER] () 600 MG TABCR 600 MG PO BID for Cough, #20 Continued Medications: Methadone Intensol Liq (Methadone Intensol Liq) 10 Mg/Ml Conc 90 MG PO DAILY, #30 ML 0 Refills Reji Boyd MD Aug 01, 2017 16:53
[2017-08-01] MEDS ORDERED: PHARMACY ORDERED LAB ONE (20:45)
== END 2017-08-01 18:00 | disposition home or self-care (01) | DRG 195 ==
LOC: NEPC 04:06 → NEDA 06:48 → HCIS 12:41 → N04A 07-31 23:05
PROVIDERS: ADMIT Hospitalist; ATTEND Hospitalist
DX: J18.9 Pneumonia, unspecified organism (principal); G89.29 Other chronic pain; J45.909 Unspecified asthma, uncomplicated; Z79.891 Long term (current) use of opiate analgesic; Z23 Encounter for immunization
CPT/HCPCS: 71045; 71046; 80053; 80202; 81001; 83605; 83880; 84484; 85025; 87040; 87070; 87205; 87804; 90686; 90732; 93005; 94150; 94640; 94664; 96365; 96367; 96375; J0456; J0692; J1885; J2543; J3370; J7030; J7050; Q2038